=== PATIENT | male | born 1970 | race Caucasian/White ===

== ENCOUNTER → 2018-12-22 | Outpatient (CLI) | payer OTHER ==
[~2018-12-22] MED LIST: ALLEGRA D PO; ALLEGRA PO; ATENOLOL PO; CRESTOR PO; LIPITOR PO
--- NOTE | 2018-12-23 08:35 | Diagnostic Imaging Report ---
Examination: MRI SPINE LUMBAR WITHOUT CONTRAST History: Nonradiating low back pain. Comparison studies: None Technique: Sagittal, coronal and axial T2 , sagittal T1 and STIR; axial spin density oblique. Findings: Number of lumbar vertebral bodies: Five. Alignment: Normal lordosis. No scoliosis. Soft tissues: No T2 hyperintense inflammatory changes. Posterior paraspinal soft tissues and muscles: No abnormality. Lower thoracic cord: Normal in signal and morphology. The tip of the conus is at T12. Cauda equina: No masses. No arachnoiditis. Vertebrae: No fractures, infection or neoplasm. Degenerative changes: L1-L2: No abnormalities. L2-L3: No abnormalities. L3-L4: Asymmetric to the left disc bulge results in mild left neural foraminal narrowing. No canal stenosis. L4-L5: Mild diffuse disc bulge. No foraminal or canal stenosis. Small bilateral facet joint effusions. L5-S1: Small bilateral facet joint effusions. No degenerative disc or canal or foraminal stenosis. IMPRESSION: Degenerative changes from L3-L4 through L5-S1 without canal or significant (not moderate or severe) foraminal stenosis. Signed by: Dr. Trish Solorio M.D. on 12/23/2018 8:32 AM
--- NOTE | 2018-12-23 09:30 | Diagnostic Imaging Report ---
Examination: MRI SPINE CERVICAL WITHOUT CONTRAST History: Nonradiating neck pain. Comparison studies: None Technique: Sagittal T1, T2 and IR, axial T2 and axial gradient echo intravenous contrast: None Findings: Alignment: Normal lordosis. No scoliosis. Cervicomedullary junction: No abnormalities. Patent foramen magnum. Soft tissues: No T2 hyperintense inflammatory changes. Spinal cord: Normal in size and signal from the foramen magnum through T1. Vertebrae: No fractures, infection or neoplasm. Nonaggressive T1 and T2 hyperintense and STIR hypointense lesion in the posterior aspect of the T2 vertebral body, measuring 1.6 cm in the craniocaudal dimension. Degenerative changes: C1-C2: No abnormalities. C2-C3: No abnormalities. C3-C4: Diffuse disc osteophyte complex and bilateral uncovertebral arthropathy result in mild bilateral neural foraminal narrowing. No canal stenosis. C4-C5 through C7-T1: No abnormalities. IMPRESSION: Degenerative changes at C3-C4 without canal or significant (not moderate or severe) foraminal stenosis. Signed by: Dr. Trish oSlorio M.D. on 12/23/2018 9:26 AM
== END ==
LOC: MRI 13:36
PROVIDERS: ATTEND Specialist
DX: M54.2 Cervicalgia (principal); M54.5 Low back pain
CPT/HCPCS: 72141; 72148

== ENCOUNTER → 2021-12-28 | Outpatient (CLI) | payer OTHER | LOC: MRI 08:06 | PROVIDERS: ATTEND Specialist | DX: M54.50 Low back pain, unspecified (principal) | CPT/HCPCS: 72148 ==